=== PATIENT | female | born 1960 | race Caucasian/White ===

== ENCOUNTER 2016-06-22 13:25 | Outpatient (CLI) | payer OTHER ==
--- NOTE | 2016-06-22 14:45 | DIAGNOSTIC IMAGING REPORT ---
PROCEDURE: CT LOW-DOSE LUNG CA SCREENING CLINICAL INDICATION: LUNG CA SCREENING TECHNIQUE: Low-dose helical CT images of the lungs without contrast were obtained and reconstructed at 2.5 mm intervals. MIP reformations in coronal and sagittal planes were created. Radiation dose 1.38mGy. COMPARISON: Oldest available comparison: Low dose CT lung CA screening 07/01/2015 FINDINGS: NODULES: Location: Left upper lobe; image location: 48; size: 2 mm; composition: Completely calcified. OTHER LUNG FINDINGS: None. AIRWAY: Branches normally without narrowing or endobronchial nodule. PLEURA: No effusions, thickening, or pneumothorax. AORTA AND GREAT VESSELS: Normal caliber, trace atherosclerotic calcification. PULMONARY ARTERIES: Normal. . HEART AND PERICARDIUM: Normal size without effusion, thickening. Mild coronary atherosclerosis. LYMPH NODES: No enlarged nodes visible. THORACIC SPINE: No suspicious lesion. Mild degenerative changes. CHEST WALL: Normal. VISUALIZED UPPER ABDOMEN: Normal. Cholecystectomy. IMPRESSION: 1. Calcified left upper lobe granuloma 2. Category 1. Negative. Recommend annual screening with LDCT chest in 12 months 3. Mild coronary atherosclerosis All CT scans at this facility use dose modulation, iterative reconstruction, and/or weight-based dosing when appropriate to reduce radiation dose to as low as reasonably achievable.
== END 2016-06-22 23:00 ==
LOC: CT SRH 13:25
DX: J84.10 Pulmonary fibrosis, unspecified (principal); Z12.2 Encounter for screening for malignant neoplasm of respiratory organs